=== PATIENT | female | born 1930 | race Caucasian/White ===

== ENCOUNTER 2017-06-06 12:04 | Inpatient (IN) | payer MEDICARE ==
[2017-06-06] VITALS (21 sets, daily range): BP systolic 89–131; BP diastolic 44–95; PULSE 51–132; RESP 17–28; O2SAT 93–100
[~2017-06-06] VITALS: Ht 167.6 cm; Wt 73.6 kg
--- NOTE | 2017-06-06 12:26 | ED.REPORT ---
HPI-Chest Pain 40 and Over Date of Service Jun 06, 2017 ED Provider: Dr. Arthur Demarco Pt is a 86 year old female with a history of kidney disease, hypertension, and A -fib wih RVR on warfarin who presents to the ED complaining of an irregular HB that woke her at 0430 2 days ago. She measured her HR at home to be between 130- 180 bpm since onset. Pt has no other complaints at this time. Pt. denies SOB, chest pain, lower extremity swelling or any other symptoms at this time. 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 Pt has been taking Atenolol every 12 hours since onset with her last dose a midnight this morning, she reports she takes this intermittently for a-fib. She does not take Cardizem but did take one Digoxin at onset. She takes Losartan daily Pt had similar symptoms a year ago which required electrocardioversion Nursing Notes Stated Complaint: A-FIB Chief Complaint: Dysrhythmia/Cardiac Nursing Notes Reviewed: Yes Allergies: Coded Allergies: Sulfa (Sulfonamide Antibiotics) (Verified Allergy, Mild, GI ISSUES, ) morphine (Verified Allergy, Unknown, nausea, 06/06/17) General Time Seen by MD: 12:26 Chief Complaint Other (Dysrhythmia ) Hx Obtained From: Patient Arrived By: Walk-in Sudden in Onset?: Yes Onset Occurred: 2 days ago Symptom Duration: Since onset Recent Healthcare: No recent doctor visit, No recent hospitalization Similar Sx Previous: Yes Risk Factors )( CAD Risk Stratification HypertensionNo Diabetes mellitus, No Hyperlipidemia, No Known CAD, No Smoking )( TAD Risk Stratification HypertensionNo Risk factors reviewed )( PE Risk Stratification No , No Risk factors reviewed Past Medical History Past Medical History A-Fib with RVR Hypertension Kidney disease Past Surgical History Orthopedic surgery Right breast Right shoulder Reports: Cataract surgery Smoking History Former Smoker Social History Alcohol Use: Denies alcohol use Drug Use: Denies drug use Ambulatory Status Independent Review of Systems Respiratory: Denies: Shortness of breath Cardiovascular: Denies: Chest pain Musculoskeletal: Denies: Extremity swelling (Lower) Complete sys rev & neg: except as marked. Physical Exam Initial Vital Signs Vital Signs (First) Date Time Temp Pulse Resp B/P Pulse Ox O2 Delivery O2 Flow Rate FiO2 06/06/17 12:11 36.2 131 18 116/73 97 Room Air 06/06/17 14:48 2 Initial VS: Reviewed General/Constitutional: Awake, Alert Appearance / Presentation: Positive: Pale Respiratory / Chest: Atraumatic, Breath sounds NL, Breath sounds = bilat Heart Rate / Rhythm: Positive: Irreg irregular rhythm, Tachycardia Abdomen: Atraumatic, Soft, Non-tender Neck: Atraumatic, Supple, No JVD Back: Atraumatic, Inspection NL, Full range of motion Lower Extremity / Pelvis / MS: No edema Skin: Warm, Dry Pale Neurologic: Oriented X3, Speech NL, No motor deficits, No sensory deficits Head / Eyes: Atraumatic, Normocephalic, PERRL, EOMI ENT: Atraumatic, Airway patent, Mucous membranes moist Interpretation & Diagnostics Lab Results Interpretation Result Diagram: 06/06/17 1243 06/06/17 1243 Test 06/06/17 12:43 White Blood Count 10.6th/mm3 (3.8-10.1) Red Blood Count 3.26mil/mm3 (3.90-5.20) Hemoglobin 10.4g/dL (12.0-15.6) Hematocrit 32.6% (35.0-46.0) Mean Corpuscular Volume 100.0fL (81-100) Mean Corpuscular Hemoglobin 31.9pg (27.0-35.0) Mean Corpuscular Hemoglobin Concent 31.9% (32.0-37.0) Red Cell Distribution Width 14.5% (12.3-15.4) Platelet Count 336bil/L (150-400) Neutrophils (%) (Auto) 65.8% (40-74) Lymphocytes (%) (Auto) 20.5% (14-46) Monocytes (%) (Auto) 9.8% (4-12) Eosinophils (%) (Auto) 2.8% (0-5) Basophils (%) (Auto) 0.5% (0-3) Prothrombin Time 40.4sec (8.1-12.5) Prothromb Time International Ratio 3.68ratio Sodium Level 136mEq/L (134-144) Potassium Level 4.5mEq/L (3.5-5.2) Chloride Level 99mEq/L (97-108) Carbon Dioxide Level 25mmol/L (18-29) Blood Urea Nitrogen 28mg/dL (8-27) Creatinine 1.54mg/dL (0.57-1.00) Estimat Glomerular Filtration Rate 46mL/min (>59) Glucose Level 88mg/dL (60-99) Calcium Level 9.1mg/dL (8.5-10.1) Magnesium Level 2.1mg/dL (1.6-2.6) Total Bilirubin 0.3mg/dL (0.0-1.2) Aspartate Amino Transf (AST/SGOT) 20U/L (0-50) Alanine Aminotransferase (ALT/SGPT) 17U/L (0-32) Alkaline Phosphatase 87U/L (25-165) Troponin T < 0.010ug/L (0.0-0.011) Total Protein 7.8g/dL (6.4-8.4) Albumin 4.2g/dL (3.4-5.0) ECG Interpretation ECG Interpretation: EKG post-cardioversion Sinus rate 57 Multiple pvc's Time: 14:56 Interpreted by: ED physician Procedures Electrical Cardioversion Electrical Cardioversion: Sinus with some PVC's with a rate of 70-80 s/p procedure. Time: 14:48 Procedure Performed by: ED physician Indication: Atrial fibrillation Consent / Setup / Site Prep: Informed consent provided, Consent from patient , Time-out performed, Placed on oxygen, Placed on pulse oximeter, Place on chili powder mixer, Hand hygiene observed Procedural Sedation/Analgesia: Sedation: Propofol (30 mg ) Joules: 50 Post-Procedure / Complications: No complications, Condition improved, Tolerated procedure well, Patient stable Proced Mod Sedation/Analgesia Physician left room at 1453. Respiratory therapy still in attendance. Time: 14:47 Procedure Performed by: ED physician Consent / Setup: Informed consent provided, Consent from patient, Time-out performed, Hand hygiene observed, Position supine Indication: Other (cardioversion) Preparation: ruling technician applied, Pulse oximeter applied, Constant attendance, IV access established, Eval last meal time, Supplemental oxygen, Procedure explained VS Prior to Procedure: O2 saturation normal, Blood pressure normal, Respiratory rate normal Airway Exam: Normal facial anatomy CVS/Resp Exam: Normal breath sounds Sedation: Sedation: Propofol Response During Procedure: Handled secretions adeq, Maintained airway well, Oxygenation stable, Sedation appropriate Complications During/After: None Reversal: None required Mental Status After Procedure: Alert, Oriented X3, Normal per age, At patient' s baseline Attestation: I performed procedure, I performed sedation Re-Eval/Medical Decision Med Decision/Clinical Course 86-year-old female with recurrent paroxysmal A. fib. Anticoagulated on Coumadin. Patient refuses beta blockers and calcium channel blockers due to medication side effects. Her discussion regarding risks benefits and alternatives to management of stable atrial fibrillation, patient agrees to proceed with attempted chemical cardioversion with amiodarone and if this fails, synchronized cardioversion. Her INR is therapeutic. She underwent synchronized cardioversion with 30 mg of propofol and 50 J of energy. Patient was asymptomatic for this however she did have transient hypotension which responded to IV fluids. She did have some ectopy after having cardioversion. She was asymptomatic of this in terms of chest pain or shortness of breath. After a 500 mL bolus of IV fluid, a period of observation, and multiple discussions with the patient, the patient is able to ambulate with a steady gait. She is asymptomatic. Etiology is briefly consulted and reviewed the case and EKGs agrees to see the patient in clinic if she feels safe to go home and agrees to see the patient in the hospital if she agrees to be admitted. Ultimately given that the patient is feeling better and is asymptomatic after extensive shared decision making regarding her disease process, the patient wishes to go home. Given that she is asymptomatic after cardioversion this seems reasonable. She will be discharged. It is recommended that she hold her warfarin due to elevated INR. It is recommended that she take her atenolol daily. She is given a contact info for cardiology and will see them in clinic. Return and follow-up precautions given. Source of Hx: Old records Time of Eval: 15:30 Re-Evaluation/Progress Note: Rechecked pt who would like to go home. Time of Eval: 16:35 Patient Status: Condition improved Re-Evaluation/Progress Note: Patient continues to have some ectopy on telemetry strip. States that she is asymptomatic. Attempted road test. She was able to get out of bed and ambulate around the room independently with no assistance. Patient had no symptoms of chest pain, shortness of breath, dizziness, vertigo, or ataxia during this. She is offered admission multiple times for observation given the ectopy and the transient low blood pressure. She repeatedly declines. Shared decision making is had. Patient understands my concerns given her supratherapeutic INR and earlier dizziness. She is insistent on going home. She agrees to return to the ER if worse. She will be given the cardiology contact info. Consultation : Referral / Consult Name: Shavonne Perez MD Consulted With: Cardiology Call Returned at: 15:15 Note: Discussed pt's case. reviewed rhythm, Suggests try atenolol 1630-came to the ER reviewed EKGs agrees that the patient is in a sinus rhythm with occasional PVCs without obvious ischemic changes. Discussed a plan of care. Agrees to see the patient either in the hospital or as an outpatient as decided by the patient. Counseled Regarding: Diagnosis, Lab results, Need for follow-up, When/why to return to ED Discharge & Departure Discharge Condition All VS Reviewed: Yes Condition: Stable Additional Instructions: While in the ER today you were treated for atrial fibrillation with a synchronized cardioversion (electric shock). Her heart is now in normal rhythm. Hold your warfarin today until your (coumadin) INR check tomorrow. Follow up with your product safety expert or primary care doctor in the next 2 days. Return to the ER if you develop persistent palpitations, persistent dizziness, chest pain, or other concerns. Referrals: OTHER,PHYSICIAN (PCP) Shavonne Perez MD Scribe Attestation Portions of this note were transcribed by Esperanza Harris and Jerardo James. I, Dr. Arthur Demarco personally performed the history, physical exam and medical decision-making; I reviewed and confirmed the accuracy of the information in the transcribed note. copies to: [facility] Santana Esparza DO Jun 06, 2017 12:26 Esperanza Harris Jun 06, 2017 12:53 JERARDO JAMES Jun 06, 2017 14:52
[2017-06-06] MEDS ORDERED: Amiodarone 150 mg/100 mL D5W 150 MG in IV Premix 1 EACH IV ONE (12:45)
[2017-06-06 12:49] LABS: BASOPHILS % (AUTO) 0.5 % (0-3); EOSINOPHILS % (AUTO) 2.8 % (0-5); MONOCYTES % (AUTO) 9.8 % (4-12); Mean Corpuscular Hemoglobin 31.9 pg (27.0-35.0); NEUTROPHILS % (AUTO) 65.8 % (40-74); Platelet Count 336 bil/L (150-400)
[2017-06-06 13:03] LABS: INR 3.68 ratio
[2017-06-06 13:15] LABS: TROPONIN T < 0.010 ug/L (0.0-0.011)
[2017-06-06 13:25] LABS: Magnesium 2.1 mg/dL (1.6-2.6)
[2017-06-06] MEDS ORDERED: Propofol 10 mg/mL 20 mL Inj IVPUSH ONE (14:30)
[2017-06-06] MEDS ORDERED: 0.9% Sodium Chloride 500 ML IV ONE (15:20)
[2017-06-06] MEDS: 0.9% Sodium Chloride 1,000 ML IV SCH (17:20)
[2017-06-06] MEDS ORDERED: Ondansetron 2 mg/mL 2 mL Inj IVPUSH PRN ×2 (18:25→19:10)
[2017-06-06] MEDS ORDERED: Alum-Mag Hydrox-Simeth 30 mL Suspension PO PRN (18:25)
[2017-06-06] MEDS ORDERED: Polyethylene Glycol (PEG) 17 Gm Powder PO PRN (19:10)
[2017-06-06] MEDS ORDERED: WARF2.5T82 PO ×2 (21:12)
[2017-06-06] MEDS ORDERED: LOSA100T29 PO (21:12)
--- NOTE | 2017-06-06 22:47 | PCM.HPMED ---
Subjective Date of Service Jun 06, 2017 Primary Provider: Admitting Physician: Nohemi Collins MD Primary Care Physician: Nopmelly Attending Physician: Nohemi Collins MD Chief Complaint: Irregular Heart rate History of Present Illness: Ms. Joelle Velasquez is a very pleasant 86 year old lady with a past medical history significant for kidney disease, hypertension, A-fib with RvR on warfarin who presents to the [facility] Emergency Department for 30+ hours of unrelenting A-fib. She reports having many episodes of this in the past that would resolve on its own or one other time she underwent elec cardioversion ~ 1 year ago. She states she had an ablation back in Nov 2016. She was given atenolol, diltiazem, flecainide and digoxin that she took for 4 weeks or so, but was not sure of time frame and she said she did not tolerate the flecainide and will not take the CCB. She reports Sunday morning she awoke to an "a-fib attack" with HR between 130-180 bpm, so she took 25mg Atenolol. The next day she remained in a-fib, so she took 25mg Atenolol BID and one dose of her home Digoxin 125 mcg. By Sun she was very nervous and called the EMS. Pt has no other complaints at this time. Pt. denies SOB, chest pain, lower extremity swelling or any other symptoms at this time. Social:Patient lives alone at [address] with her dog "ferny" in a town-home. She has stairs but lives in the lower level and doesn' t go up stairs. She has good social support and does not require an ambulatory aid. FULL CODE. 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 Pt has been taking Atenolol every 12 hours since onset with her last dose a midnight this morning, she reports she takes this intermittently for a-fib. She takes Losartan daily In the ED patients vitals: T36.2, HR 131, RR-18, BP-116/73, 97% RA. Patient underwent Electro-Cardioversion in the ED. Patient was to be discharged home, however, following cardioversion she had a near syncopal episode while ambulating down the koo. She is admitted under observation status. On Tele monitor. Patient has refused blood draws and CXR's. Review of Systems: A comprehensive review of systems was conducted with the patient and found to be negative except as above in the History of Present Illness. Allergies Coded Allergies: Sulfa (Sulfonamide Antibiotics) (Verified Allergy, Mild, GI ISSUES, ) morphine (Verified Allergy, Unknown, nausea, 06/06/17) Home Medications Warfarin 2.5 mg daily Losartan 100 mg daily Zolpidem 10 mg daily Previous Medications. Xarelto 15 mg daily Digoxin 125 mcg daily Flecainide 50 mg daily Diltiazem 120 mg daily Atenolol 25 mg daily PMH A-Fib with RVR Hypertension Kidney disease Surgical History Orthopedic surgery Right breast Right shoulder Reports: Cataract surgery Family History Mother - old age Father - Cancer Social History Hx Alcohol Use: Yes (occ) Hx Substance Use: No Smoking Status: Former Smoker Exam Vital Signs Vital Sign - Last Date Time Temp Pulse Resp B/P Pulse Ox O2 Delivery O2 Flow Rate FiO2 06/06/17 19:25 36.9 51 20 118/64 93 Room Air 06/06/17 14:48 2 Exam General: Elderly lady lying in bed in no acute distress, well-developed, well- nourished, appropriately interactive HEENT: Normocephalic, atraumatic. External ears without defect. Pupils equal, round, and reactive to light and accommodation. Anicteric sclerae, moist conjunctivae, and no lid lag. Oropharynx free of erythema and cobble stoning with moist mucosa. Neck: Supple with full range of motion. No jugular venous distension. No bruits. No lymphadenopathy or thyromegaly. Cardiovascular: Irregularly irregular rate and rhythm with no murmurs, rubs, or gallops appreciated Pulmonary: Clear to auscultation bilaterally with no crackles, wheezes, or rhonchi. Normal respiratory effort with no use of accessory muscles. Abdomen: Bowel tones present. Soft, nontender, nondistended. No hepatosplenomegaly or masses appreciated. Extremities: No clubbing, cyanosis, edema, or lymphadenopathy appreciated. Skin: Normal temperature, turgor, and texture; no rash, ulcers, or subcutaneous nodules appreciated. Neurological: Cranial nerves grossly intact. Normal muscle strength, tone, and bulk. Reflexes, coordination, and sensory function within normal limits. No known gait impairment. Psychiatric: Normal mood and affect. Alert and oriented to person, place, and time. Lab and Diagnostics Result Diagram: 06/06/17 1243 06/06/17 1243 Assessment & Plan Ms. Joelle Velasquez is a very pleasant 86 year old lady with a past medical history significant for kidney disease, hypertension, A-fib with RvR on warfarin who presents to the [facility] Emergency Department for 30+ hours of unrelenting A-fib. She was cardioverted in the ED and had a near-syncopal episode. She was admitted under observation status. Cardiology consulted for the AM. Acute on Chronic Persistent Paroxysmal Atrial Fibrillation with RvR requiring electro cardioversion in the ED, present on admission. Resolved. - Continue home Warfarin. INR 3.68. - Amiodarone 150 mg IV given in the ED. - Troponins neg x2. - On Tele. - Patient received 25 mg Atenolol. - Amiodarone PO maintenance 200 mg PO BID. - Cardiology consulted. - ECHO ordered. Near syncope, present in the ED. Resolved. - Monitor BP, orthostatics ordered. - Continue IV NS @75/hr for 1 L. Super-therapeutic INR. present on admission. Active. - INR 3.68. - Holding Warfarin. Chronic conditions. Chronic Kidney Disease - Cre 1.54, unknown baseline. 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 Hypertension. - Holding losartan 100 mg till appropriate, patient currently normotensive. Chronic Anemia - Hgb 10.4 on admission, currently 9.3. - Will follow H&H. Acetaminophen for mild pain when necessary. Bowel regimen Senna and MiraLAX scheduled and PRN. Zofran when necessary for nausea and vomiting. SubQ heparin held for now. SCDs in place. High-risk medications: Warfarin on hold. Social:Patient lives alone at [address] with her dog "ferny" in a town-home. She has stairs but lives in the lower level and doesn' t go up stairs. She has good social support and does not require an ambulatory aid. FULL CODE. Patient Status: Patient is admitted under observation status with expected length of stay less than 2 midnights due to severity of presenting symptoms, risk of adverse event, and complexity of treatment plan. Pain Evaluation: Adequate Pain Control Resuscitation Status: CPR: Attempt Resuscitation Attending Statement Patient has been seen and examined by myself with medical facilities section director and agree with above history, physical, assessment and plan. BAYLEE CONCEPCION DO Jun 06, 2017 19:58 Nohemi Collins MD Jun 07, 2017 06:11
[2017-06-07] VITALS (9 sets, daily range): BP systolic 107–137; BP diastolic 60–71; PULSE 55–100; RESP 16–18; O2SAT 95–100
[2017-06-07] MEDS: 0.9% Sodium Chloride 1,000 ML IV SCH (08:53)
--- NOTE | 2017-06-07 12:16 | DRSVH ---
[facility] [address] [place] [address] Echocardiogram Report Name: JANES JONES Date: 05/22 Height: 66 in Hospital Exam Location: [facility] Weight: 156 lb Gender: Female BSA: 1.8 m2 : 1930 Age: 86 yrs BP: 107/60 mmHg Reason For Study: Atrial fibrillation RVR Ordering Physician: Bg OlivierPerformed By: Justin Banerjee Referring Physician: BAYLEE CONCEPCION Interpretation Summary The left ventricle is normal in size. The ejection fraction is estimated to be 55-60%. Assessment of diastolic parameters indicates a restrictive filling pattern of the left ventricle consistent with significantly elevated filling pressures. The right ventricle is mild to moderately dilated. Right ventricular systolic function is at the lower limits of normal. There is moderate mitral regurgitation. There is moderate to severe tricuspid regurgitation. The right ventricular systolic pressure is estimated at 52 mmHg assuming a right atrial pressure of 15 mm Hg. There is moderate pulmonary hypertension. Procedure: A two-dimensional transthoracic echocardiogram with color flow and Doppler was performed. The study quality was technically adequate. There is no prior echocardiogram noted for this patient. The heart rate ranged between 54-68 bpm during the study. The patient was in normal sinus rhythm during the exam. The patient had frequent PACs during the exam. Left Ventricle: The left ventricle is normal in size. Left ventricular wall thickness is at the upper limits of normal. Proximal septal thickening is noted. There is no echo evidence for significant left ventricular outflow tract obstruction. There is no thrombus. The ejection fraction is estimated to be 55-60%. Septal motion is consistent with conduction abnormality. Assessment of diastolic parameters indicates a restrictive filling pattern of the left ventricle consistent with significantly elevated filling pressures. Right Ventricle: The right ventricle is mild to moderately dilated. A calcified moderator band is seen in the right ventricle. Right ventricular systolic function is at the lower limits of normal. Atria: Both atria are severely dilated. The interatrial septum is intact with no evidence for an atrial septal defect. Mitral Valve: The mitral valve leaflets are mildly calcified. There is moderate to severe mitral annular calcification. No significant mitral valve stenosis. There is moderate mitral regurgitation. Aortic Valve: The aortic valve is mildly calcified. The aortic valve is trileaflet. There is no aortic valve stenosis. No aortic regurgitation is present. Tricuspid Valve: The tricuspid valve leaflets are thickened and/or calcified, but open well. The tricuspid annulus is dilated. There is moderate to severe tricuspid regurgitation. The right ventricular systolic pressure is estimated at 52 mmHg assuming a right atrial pressure of 15 mm Hg. There is moderate pulmonary hypertension. Pulmonic Valve: The pulmonic valve is not well visualized. Great Vessels: The aortic root is normal size. The ascending aorta is mildly enlarged. The pulmonary is not well visualized. The IVC is dilated (diameter is greater than 2.1 cm) and it collapses less than 50% with a sniff. This suggests a high right atrial pressure of 15 mm Hg. Pericardium/ Pleura There is no pericardial effusion. There is no pleural effusion. MMode/2D Measurements & Calculations LVIDd: 4.8 cm RA long axis LVOT diam LVIDs: 3.4 cm LA A2 area: 20.8 cm FS: 29.7 % LA A4 area: 25.8 cm RA area AoV Opening EPSS: 0.91 cm LA length (vol): 6.2 cm IVSd: 1.00 cm LA vol: 73.5 ml : 21.0 cm Ao root diam LVPWd: 0.91 cm LA vol index RA vol : 74.7 ml asc Aorta RA Diam: 3.4 cm IVC diam: 2.6 cm : 41.5 mm2 LV escobedo. diameter/BSA LV sys. diameter/BSA TAPSE: 1.9 cm (cm/m^2): 2.7 (cm/m^2): 1.9 Doppler Measurements & Calculations Ao V2 max: 125.1 cm/secMV E max sushant MV E/A: 2.6 TR max sushant Ao max P.3 mmHg : 119.2 cm/sec Med Peak E' Sushant : 305.7 cm/sec Ao mean P.0 mmHg MV A max sushant TR max PG LVOT Max Sushant : 46.0 cm/sec E/E' med: 24.3 : 37.4 mmHg : 69.5 cm/sec Lat Peak E' Sushant PA V2 max CHAPITO(I,D): 1.5 cm : 84.6 cm/sec sev ratio: 0.54 E/E' lat: 18.9 PA mean PG E/e' average : 1.5 mmHg MV dec time: 0.17 sec Ao V2 mean LV V1 max PG PA V2 mean : 98.1 cm/sec : 59.0 cm/sec Ao V2 VTI: 27.5 cmLV V1 VTI PA pr(Accel) CHAPITO(V,D): 1.5 cm2 : 14.9 cm : 39.1 mmHg CHAPITO indexed to BSA (cm^2/m^2): 0.81 Reading Physician:PM
--- NOTE | 2017-06-07 13:18 | PCM.PNMED ---
Subjective Date of Service Jun 07, 2017 Subjective Pt has been in sinus since cardioversion. Says no syncope this AM w/ standing. Denies CP/Palpitations. Exam Vital Signs Vital Sign - Last Date Time Temp Pulse Resp B/P Pulse Ox O2 Delivery O2 Flow Rate FiO2 06/07/17 10:57 60 06/07/17 08:15 16 137/71 100 Room Air 06/07/17 03:26 36.7 06/06/17 14:48 2 Intake and Output 06/06/17 06/06/17 06/07/17 Cumulative From/Thru 15:00 23:00 07:00 06/06/17 12:11 - 06/07/17 05:16 Intake Total 882 ml 882 ml Output Total 500 ml 500 ml Balance 382 ml 382 ml Intake Oral 400 ml 400 ml IV Total 482 ml 482 ml Output Urine Total 300 ml 300 ml Urine/Stool Mix 200 ml 200 ml # Bowel Movements 1 1 Exam General: Elderly lady lying in bed in no acute distress, well-developed, well- nourished, appropriately interactive HEENT: Normocephalic, atraumatic. External ears without defect. Pupils equal, round, and reactive to light and accommodation. Anicteric sclerae, moist conjunctivae, and no lid lag. Oropharynx free of erythema and cobble stoning with moist mucosa. Neck: Supple with full range of motion. No jugular venous distension. No bruits. No lymphadenopathy or thyromegaly. Cardiovascular: Irregularly irregular rate and rhythm with no murmurs, rubs, or gallops appreciated Pulmonary: Clear to auscultation bilaterally with no crackles, wheezes, or rhonchi. Normal respiratory effort with no use of accessory muscles. Abdomen: Bowel tones present. Soft, nontender, nondistended. No hepatosplenomegaly or masses appreciated. Extremities: No clubbing, cyanosis, edema, or lymphadenopathy appreciated. Skin: Normal temperature, turgor, and texture; no rash, ulcers, or subcutaneous nodules appreciated. Neurological: Cranial nerves grossly intact. Normal muscle strength, tone, and bulk. Reflexes, coordination, and sensory function within normal limits. No known gait impairment. Psychiatric: Normal mood and affect. Alert and oriented to person, place, and time. IVs and Medications Medications Reviewed: Medications were reviewed in detail Lab and Diagnostics Result Diagram: 06/06/17211117 1243 12-lead ECG 06/07/17- Echo The left ventricle is normal in size. The ejection fraction is estimated to be 55-60%. Assessment of diastolic parameters indicates a restrictive filling pattern of the left ventricle consistent with significantly elevated filling pressures. The right ventricle is mild to moderately dilated. Right ventricular systolic function is at the lower limits of normal. There is moderate mitral regurgitation. There is moderate to severe tricuspid regurgitation. The right ventricular systolic pressure is estimated at 52 mmHg assuming a right atrial pressure of 15 mm Hg. There is moderate pulmonary hypertension Assessment & Plan Ms. Joelle Velasquez is a very pleasant 86 year old lady with a past medical history significant for kidney disease, hypertension, A-fib with RvR on warfarin who presents to the [facility] Emergency Department for 30+ hours of unrelenting A-fib. She was cardioverted in the ED and had a near-syncopal episode. She was admitted under observation status. Acute on Chronic Persistent Paroxysmal Atrial Fibrillation with RvR requiring electro cardioversion in the ED, present on admission. Resolved. - Continue home Warfarin. INR 3.68. Patient received 25 mg Atenolol which is home med, but pt takes infrequently. -Amiodarone 150 mg IV given in the ED. Amiodarone PO maintenance 200 mg PO BID , stopped 06/07. - Troponins neg x2. - 06/07- Echo- EF 55-60%, LV Diastolic dysfunction indicated restrictive filling pattern. RV mild to moderately dilated. Mod MR, Mod-Severe TR, moderate pulmonary hypertension - Cardiology consulted. Dr Perez, initial recs d/c amiodarone as can prolong INR , can rate control with Atenolol. Will see in afternoon. - Recheck INR in AM, can hold until INR is in therapeutic window 2-3. Near syncope, present in the ED. Resolved. - Monitor BP. resume home as tolerated- Losartan, Atenolol. - Continue IV NS @75/hr for 1 L. Super-therapeutic INR. present on admission. Active. - INR 3.68. - Holding Warfarin. - Recheck INR in AM, can hold until INR is in therapeutic window 2-3. Chronic conditions. Chronic Kidney Disease - Cre 1.54, baseline 1.4 per records. - [employer] at [employer] Hypertension, stable. - Resumed losartan 100 mg, pt took half dose on 06/07. . Chronic Anemia, stable. - Hgb 10.4 on admission, currently 9.3. - Will follow H&H. Acetaminophen for mild pain when necessary. Bowel regimen Senna and MiraLAX scheduled and PRN. Zofran when necessary for nausea and vomiting. SubQ heparin held for now. SCDs in place. High-risk medications: Warfarin on hold. Social:Patient lives alone at [place] [facility] with her dog "ferny" in a town-home. She has stairs but lives in the lower level and doesn' t go up stairs. She has good social support and does not require an ambulatory aid. Patient Status: Patient changed from obs to inpatient status with expected length of stay greater than 2 midnights due to severity of presenting symptoms, risk of adverse event, and complexity of treatment plan. VTE Mechanical Devices: Intermittant Pneumatic CD Resuscitation Status: CPR: Attempt Resuscitation Perry Crawford MD Jun 07, 2017 13:18
--- NOTE | 2017-06-07 16:41 | CONS ---
[address] [address] CONSULTATION REPORT PATIENT: JANES JONES : 1930 MR#: [id number] ADMIT: 06/06/2017 JOB ID: [id number] DATE OF SERVICE: 06/07/2017 CARDIOLOGY CONSULTATION: CHIEF COMPLAINT: I was asked by the hospitalist team to consult on this patient given recent atrial fibrillation status post cardioversion with significant ectopy post cardioversion. HISTORY OF PRESENT ILLNESS: The patient is an 86-year-old woman who has a past medical history significant for hypertension, atrial fibrillation, for which she had an ablation procedure performed this year at [facility] in [place]. Unfortunately she has had recurrence of the atrial fibrillation. She is on anticoagulation and was told to take atenolol whenever she feels that her heart rates are going up as she might be in atrial fibrillation. Apparently this has worked thus far. Yesterday she came into the ED, however, with persistence of atrial fibrillation with high ventricular rates. She was therapeutic on anticoagulation, and because of this, she was given a bolus of amiodarone and cardioverted. This successfully converted her to sinus rhythm. However, she had significant ectopy including frequent PACs and some PVCs. She was given sedation for the cardioversion and was still somewhat dizzy and lightheaded with relatively low blood pressure after cardioversion. Therefore, plans were made for admission. Since she has been admitted, she has actually been doing quite well. She was started on amiodarone at admission, however, we have now discontinued this. She is currently on losartan and atenolol as well as warfarin although warfarin has been held because of a somewhat elevated INR. She says prior to this, she has been doing fairly well. She denies any problems with chest pain, shortness of breath, orthopnea, lower extremity edema, presyncope or syncope. She does have chronic renal insufficiency and is followed by a doctor at [facility]. She also has a primary care provider who she just recently started with in the [facility] and she is very pleased with him. PAST MEDICAL HISTORY/PROBLEM LIST: 1. History of paroxysmal atrial fibrillation. 2. Hypertension. HOME MEDICATIONS: Include: 1. Warfarin 2.5 daily. 2. Losartan 100 mg daily. 3. Atenolol as needed. ALLERGIES: SULFA and MORPHINE. She has also tried multiple other medications which she has not been able to continue including Xarelto, digoxin, flecainide, diltiazem. I think she told me that she has been on Coreg and I am not sure if she has been on metoprolol. SOCIAL HISTORY: Occasional alcohol use. No tobacco use. Former smoker. FAMILY HISTORY: No early coronary artery disease. REVIEW OF SYSTEMS: Overall health: No effusions, night sweats, or weight loss. GI: No problems with ulcers, blood in the stool. : No dysuria, hematuria. Pulmonary: No lung disease. No significant shortness of breath. Cardiac: As per HPI. Endocrine: No heat or cold intolerance. Heme: No easy bruising or bleeding. Neuro: No chronic headaches. Skin: No breakdown appreciated. Psych: No acute issues. ENT: No difficulty with hearing or swallowing or paradoxical vision issues. PHYSICAL EXAMINATION: Blood pressure 124/64, heart rate 59, sats are 96% on room air. General: In no acute distress. Speaking in full sentences without apparent shortness of breath. Head and neck examination: Normocephalic, atraumatic. Neck: No masses appreciated. Heart examination: Regular rate and rhythm. I do not appreciate murmurs, gallops, rubs. Lungs sound clear to auscultation. Back: No CVA tenderness to palpation. Abdomen: Soft, nontender. Vascular: 2+ distal pulses. No carotid bruits appreciated. Skin without breakdown appreciated. Neuro: Alert and oriented x3. Gait is not tested. Psych: Appropriate mood and affect. Ophtho: Vision grossly intact. ENT: Hearing grossly intact. Mucous membranes moist. CURRENT MEDICATIONS: As noted. LABORATORIES: Show an INR of 3.68. Chemistry from yesterday shows a sodium 136, potassium 4.5, chloride and bicarb 99 and 25 respectively. BUN and creatinine 28 and 1.54. Troponins all negative. Hematology shows a white count 10.7, H and H 10.4 and 32.6, fairly stable. Platelets of 336,000. An echocardiogram shows normal LV systolic function. Moderate mitral regurgitation. Elevated right-sided pressures and some degree of tricuspid regurgitation, at least moderate. IMPRESSION: The patient is doing well at this time. She is fairly intolerant of most medications which would help with AV stew blocking including calcium channel blockers and most beta blockers although she seemed to tolerate atenolol. She says she has tried Coreg before and did not tolerate this as well. I would not recommend digoxin. It seems that she has not tolerated that as well. PLAN/RECOMMENDATIONS: 1. I spoke with the hospitalist and I think the plan is to keep her for an additional day to see how she does and make sure her INR is safe. She did get amiodarone which may have affected the INR reading. 2. Originally we were thinking of a scheduled atenolol dosing. We need to just make sure what her renal clearance is as this is renally cleared to make sure this is a safe drug for her to take on a daily basis. Alternatively we could put her on metoprolol succinate short-term to see if this helps. I am not sure if she will continue this. 3. I did talk about the amiodarone, however, I told her that is a drug that has interactions with her Coumadin and also has the potential for side effects. It could maintain sinus rhythm, however, although there are other drugs we could consider. It appears that she did try flecainide in the past. 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 I will check with you tomorrow. I spent 45 minutes speaking with the patient reviewing all records, examining her, discussing plans for further management.
--- NOTE | 2017-06-07 16:51 | PCM.PHAPRO ---
Progress Date of Service: Jun 07, 2017 Irregular Heart rate Warfarin Management per Pharmacy: Indication: Stroke prophylaxis as patient has atrial fibrillation Goal INR: 2-3 Home Dose: 1.25 mg Tues/Th and 2.5 mg all other days Labs: Hgb/Hct: 9.3/29.1 Plt: 336 INR: 3.68 (drawn on 06/06), no new labs today Drug Interactions: Received amiodarone yesterday, d/c today Recommendation: Hold warfarin as believe INR is still high (although cannot verify as lab not drawn although ordered). INR ordered daily w/ AM labs Pharmacy to continue to monitor and adjust dose as needed. Thank You, Tali Roman, Pharm D. Tali Roman Jun 07, 2017 16:51
[2017-06-07] MEDS: Alum-Mag Hydrox-Simeth 30 mL Suspension PO PRN (20:51)
[2017-06-08 01:44] VITALS: BP 132/72; PULSE 50; RESP 18; O2SAT 96
[2017-06-08] MEDS: 0.9% Sodium Chloride 1,000 ML IV SCH ×2 (02:01→09:19)
[2017-06-08 02:09] LABS: APPEARANCE,URINE CLEAR (CLEAR,HAZY); COLOR,URINE YELLOW (YELLOW); OCCULT BLOOD,URINE NEGATIVE (NEGATIVE); PH,URINE 5.5 (5.0-8.0); UROBILINOGEN,URINE NORMAL (NORMAL)
[2017-06-08 05:14] VITALS: BP 125/67; PULSE 60; RESP 18; O2SAT 96
[2017-06-08 06:03] VITALS: PULSE 59
[2017-06-08 09:10] LABS: INR 1.95 ratio
[2017-06-08 10:33] VITALS: BP 122/59; PULSE 61; RESP 16; O2SAT 97
[2017-06-08] MEDS: Alum-Mag Hydrox-Simeth 30 mL Suspension PO PRN (10:35)
--- NOTE | 2017-06-08 10:53 | PCM.PNMED ---
Subjective Date of Service Jun 08, 2017 Subjective Pt has remained in sinus rythm overnight. No palpitations. No chest pain. Exam Vital Signs Vital Sign - Last Date Time Temp Pulse Resp B/P Pulse Ox O2 Delivery O2 Flow Rate FiO2 06/08/17 10:33 36.7 61 16 122/59 97 Room Air 06/06/17 14:48 2 Intake and Output 06/07/17 06/07/17 06/08/17 Cumulative From/Thru 15:00 23:00 07:00 06/06/17 12:11 - 06/08/17 00:46 Intake Total 436 ml 1318 ml Output Total 100 ml 600 ml Balance 336 ml 718 ml Intake Oral 436 ml 836 ml IV Total 482 ml Output Urine Total 100 ml 400 ml Urine/Stool Mix 200 ml # Voids 3 3 # Bowel Movements 1 Exam General: Elderly lady lying in bed in no acute distress, well-developed, well- nourished, appropriately interactive HEENT: Normocephalic, atraumatic. External ears without defect. Pupils equal, round, and reactive to light and accommodation. Anicteric sclerae, moist conjunctivae, and no lid lag. Oropharynx free of erythema and cobble stoning with moist mucosa. Neck: Supple with full range of motion. No jugular venous distension. No bruits. No lymphadenopathy or thyromegaly. Cardiovascular: Irregularly irregular rate and rhythm with no murmurs, rubs, or gallops appreciated Pulmonary: Clear to auscultation bilaterally with no crackles, wheezes, or rhonchi. Normal respiratory effort with no use of accessory muscles. Abdomen: Bowel tones present. Soft, nontender, nondistended. No hepatosplenomegaly or masses appreciated. Extremities: No clubbing, cyanosis, edema, or lymphadenopathy appreciated. Skin: Normal temperature, turgor, and texture; no rash, ulcers, or subcutaneous nodules appreciated. Neurological: Cranial nerves grossly intact. Normal muscle strength, tone, and bulk. Reflexes, coordination, and sensory function within normal limits. No known gait impairment. Psychiatric: Normal mood and affect. Alert and oriented to person, place, and time. IVs and Medications Medications Reviewed: Medications were reviewed in detail Lab and Diagnostics Result Diagram: 06/06/17 2112 06/06/17 1243 12-lead ECG 06/07/17- Echo The left ventricle is normal in size. The ejection fraction is estimated to be 55-60%. Assessment of diastolic parameters indicates a restrictive filling pattern of the left ventricle consistent with significantly elevated filling pressures. The right ventricle is mild to moderately dilated. Right ventricular systolic function is at the lower limits of normal. There is moderate mitral regurgitation. There is moderate to severe tricuspid regurgitation. The right ventricular systolic pressure is estimated at 52 mmHg assuming a right atrial pressure of 15 mm Hg. There is moderate pulmonary hypertension Assessment & Plan Ms. Joelle Mckeonlps is a very pleasant 86 year old lady with a past medical history significant for kidney disease, hypertension, A-fib with RvR on warfarin who presents to the [facility] Emergency Department for 30+ hours of unrelenting A-fib. She was cardioverted in the ED and has remained in sinus rhythm. Acute on Chronic Persistent Paroxysmal Atrial Fibrillation with RvR requiring electro cardioversion in the ED, present on admission. Resolved. - Continue home Warfarin. INR 3.68. Patient received 25 mg Atenolol which is home med, but pt takes infrequently. -Amiodarone 150 mg IV given in the ED. Amiodarone PO maintenance 200 mg PO BID , stopped 06/07. - Troponins neg x2. - 06/07- Echo- EF 55-60%, LV Diastolic dysfunction indicated restrictive filling pattern. RV mild to moderately dilated. Mod MR, Mod-Severe TR, moderate pulmonary hypertension - Cardiology consulted. Dr Perez, initial recs d/c amiodarone as can prolong INR , can rate control with Atenolol. - Repeat INR on 06/08 is 1.95 , goal therapeutic window 2-3. Can resume coumadin today. Near syncope, present in the ED. Resolved. - Monitor BP. - Resumed home medications- Losartan, Atenolol as needed. if HR greater than 100. Super-therapeutic INR. present on admission. Active. - INR 3.68. Likely inc also due to amiodarone dosing. - Holding Warfarin. - Repeat INR on 06/08 is 1.95 , goal therapeutic window 2-3. Can resume coumadin today. Chronic conditions. Chronic Kidney Disease, stable. - Cre 1.54, baseline 1.4 per records. 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 Hypertension, stable. - Resumed losartan 100 mg. Chronic Anemia, stable. - Hgb 10.4 on admission, currently 9.3. Acetaminophen for mild pain when necessary. Bowel regimen Senna and MiraLAX scheduled and PRN. Zofran when necessary for nausea and vomiting. Social:Patient lives alone at [place] [facility] with her dog "ferny" in a town-home. She has stairs but lives in the lower level and doesn' t go up stairs. She has good social support and does not require an ambulatory aid. Dispo- -Follow up with Cardiology Dr. Sue in 1 week, information provided on card. -Resumed home medications- Losartan, Atenolol as needed. if HR greater than 100. -Repeat INR on 06/08 is 1.95 , goal therapeutic window 2-3. Can resume Coumadin today. -Can resume normal INR testing lab schedule next week. VTE Mechanical Devices: Intermittant Pneumatic CD Resuscitation Status: CPR: Attempt Resuscitation Perry Crawford MD Jun 08, 2017 10:53
[2017-06-08] MEDS ORDERED: ATEN25TA PO (10:55)
--- NOTE | 2017-06-08 10:58 | PCM.DIMED ---
Discharge Instructions Date of Service Jun 08, 2017 Dates of Hospitalization Jun 06, 2017 at 18:53 Discharge Diagnosis Discharge Diagnosis Acute on Chronic Persistent Paroxysmal Atrial Fibrillation with RvR requiring electro cardioversion in the ED, present on admission. Resolved. Near syncope, present in the ED. Resolved. Super-therapeutic INR. present on admission. resolved. Chronic conditions. Chronic Kidney Disease, stable. Hypertension, stable. Chronic Anemia, stable. Medication Instructions Additional med instructions -Resumed home medications- Losartan, - Atenolol as needed. if HR greater than 100. Diet Discharge Diet: Heart Healthy Call your provider Call your provider for: Chest pain Patient Instructions Patient Instructions -Repeat INR on 06/08 is 1.95 , goal therapeutic window 2-3. Can resume Coumadin today. -Can resume normal INR testing lab schedule next week. Follow-up plan -Follow up with Cardiology Dr. Sue in 1 week, information provided on card. Perry Crawford MD Jun 08, 2017 10:58
--- NOTE | 2017-06-08 11:01 | PCM.DC.MED ---
Discharge Summary Date of Service Jun 08, 2017 Dates of Hospitalization Date of Hospital Admission Jun 06, 2017 at 18:53 Date of Discharge: Jun 08, 2017 Providers: Admitting Physician: Nohemi Collins MD Primary Care Physician: Kemal Attending Physician: Yasmine Gamez MD Diagnosis at Time of Discharge Diagnosis at Time of Discharge Acute on Chronic Persistent Paroxysmal Atrial Fibrillation with RvR requiring electro cardioversion in the ED, present on admission. Resolved. Near syncope, present in the ED. Resolved. Super-therapeutic INR. present on admission. resolved. Chronic conditions. Chronic Kidney Disease, stable. Hypertension, stable. Chronic Anemia, stable. Procedures ECG 12 Lead 06/07/17- Echo The left ventricle is normal in size. The ejection fraction is estimated to be 55-60%. Assessment of diastolic parameters indicates a restrictive filling pattern of the left ventricle consistent with significantly elevated filling pressures. The right ventricle is mild to moderately dilated. Right ventricular systolic function is at the lower limits of normal. There is moderate mitral regurgitation. There is moderate to severe tricuspid regurgitation. The right ventricular systolic pressure is estimated at 52 mmHg assuming a right atrial pressure of 15 mm Hg. There is moderate pulmonary hypertension Brief History Per HPI by Dr. Dixon on 06/06/17 Ms. Joelle Velasquez is a very pleasant 86 year old lady with a past medical history significant for kidney disease, hypertension, A-fib with RvR on warfarin who presents to the [facility] Emergency Department for 30+ hours of unrelenting A-fib. She reports having many episodes of this in the past that would resolve on its own or one other time she underwent elec cardioversion ~ 1 year ago. She states she had an ablation back in Nov 2016. She was given atenolol, diltiazem, flecainide and digoxin that she took for 4 weeks or so, but was not sure of time frame and she said she did not tolerate the flecainide and will not take the CCB. She reports Sunday morning she awoke to an "a-fib attack" with HR between 130-180 bpm, so she took 25mg Atenolol. The next day she remained in a-fib, so she took 25mg Atenolol BID and one dose of her home Digoxin 125 mcg. By Sun she was very nervous and called the EMS. Pt has no other complaints at this time. Pt. denies SOB, chest pain, lower extremity swelling or any other symptoms at this time. Social:Patient lives alone at [facility] with her dog "ferny" in a town-home. She has stairs but lives in the lower level and doesn' t go up stairs. She has good social support and does not require an ambulatory aid. FULL CODE. 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 Pt has been taking Atenolol every 12 hours since onset with her last dose a midnight this morning, she reports she takes this intermittently for a-fib. She takes Losartan daily In the ED patients vitals: T36.2, HR 131, RR-18, BP-116/73, 97% RA. Patient underwent Electro-Cardioversion in the ED. Patient was to be discharged home, however, following cardioversion she had a near syncopal episode while ambulating down the koo. She is admitted under observation status. On Tele monitor. Patient has refused blood draws and CXR's. Hospital Course Ms. Joelle Velasquez is a very pleasant 86 year old lady with a past medical history significant for kidney disease, hypertension, A-fib with RvR on warfarin who presents to the [facility] Emergency Department for 30+ hours of unrelenting A-fib. She was cardioverted in the ED and has remained in sinus rhythm. Acute on Chronic Persistent Paroxysmal Atrial Fibrillation with RvR requiring electro cardioversion in the ED, present on admission. Resolved. - Continue home Warfarin. INR 3.68. Patient received 25 mg Atenolol which is home med, but pt takes infrequently. -Amiodarone 150 mg IV given in the ED. Amiodarone PO maintenance 200 mg PO BID , stopped 06/07. - Troponins neg x2. - 06/07- Echo- EF 55-60%, LV Diastolic dysfunction indicated restrictive filling pattern. RV mild to moderately dilated. Mod MR, Mod-Severe TR, moderate pulmonary hypertension - Cardiology consulted. Dr Perez, initial recs d/c amiodarone as can prolong INR , can rate control with Atenolol. - Repeat INR on 06/08 is 1.95 , goal therapeutic window 2-3. Can resume coumadin today. Near syncope, present in the ED. Resolved. - Monitor BP. - Resumed home medications- Losartan, Atenolol as needed. if HR greater than 100. Super-therapeutic INR. present on admission. Active. - INR 3.68. Likely inc also due to amiodarone dosing. - Holding Warfarin. - Repeat INR on 06/08 is 1.95 , goal therapeutic window 2-3. Can resume coumadin today. Chronic conditions. Chronic Kidney Disease, stable. - Cre 1.54, baseline 1.4 per records. 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 Hypertension, stable. - Resumed losartan 100 mg. Chronic Anemia, stable. - Hgb 10.4 on admission, currently 9.3. Acetaminophen for mild pain when necessary. Bowel regimen Senna and MiraLAX scheduled and PRN. Zofran when necessary for nausea and vomiting. Social:Patient lives alone at [address] with her dog "ferny" in a town-home. She has stairs but lives in the lower level and doesn' t go up stairs. She has good social support and does not require an ambulatory aid. Dispo- -Follow up with Cardiology Dr. Sue in 1 week, information provided on card. -Resumed home medications- Losartan, Atenolol as needed. if HR greater than 100. -Repeat INR on 06/08 is 1.95 , goal therapeutic window 2-3. Can resume Coumadin today. -Can resume normal INR testing lab schedule next week. Exam Vital Signs (Last) Date Time Temp Pulse Resp B/P Pulse Ox O2 Delivery O2 Flow Rate FiO2 06/08/17 10:33 36.7 61 16 122/59 97 Room Air 06/06/17 14:48 2 Test 06/06/17 12:43 06/06/17 21:12 06/08/17 01:00 06/08/17 08:40 White Blood Count 10.6th/mm3 (3.8-10.1) Red Blood Count 3.26mil/mm3 (3.90-5.20) Mean Corpuscular Volume 100.0fL (81-100) Mean Corpuscular Hemoglobin 31.9pg (27.0-35.0) Mean Corpuscular Hemoglobin Concent 31.9% (32.0-37.0) Red Cell Distribution Width 14.5% (12.3-15.4) Platelet Count 336bil/L (150-400) Neutrophils (%) (Auto) 65.8% (40-74) Lymphocytes (%) (Auto) 20.5% (14-46) Monocytes (%) (Auto) 9.8% (4-12) Eosinophils (%) (Auto) 2.8% (0-5) Basophils (%) (Auto) 0.5% (0-3) Sodium Level 136mEq/L (134-144) Potassium Level 4.5mEq/L (3.5-5.2) Chloride Level 99mEq/L (97-108) Carbon Dioxide Level 25mmol/L (18-29) Blood Urea Nitrogen 28mg/dL (8-27) Creatinine 1.54mg/dL (0.57-1.00) Estimat Glomerular Filtration Rate 46mL/min (>59) Glucose Level 88mg/dL (60-99) Calcium Level 9.1mg/dL (8.5-10.1) Magnesium Level 2.1mg/dL (1.6-2.6) Total Bilirubin 0.3mg/dL (0.0-1.2) Aspartate Amino Transf (AST/SGOT) 20U/L (0-50) Alanine Aminotransferase (ALT/SGPT) 17U/L (0-32) Alkaline Phosphatase 87U/L (25-165) Total Protein 7.8g/dL (6.4-8.4) Albumin 4.2g/dL (3.4-5.0) Hemoglobin 9.3g/dL (12.0-15.6) Hematocrit 29.1% (35.0-46.0) Lactic Acid Level 1.2mmol/L (0.4-2.0) Troponin T < 0.010ug/L (0.0-0.011) Urine Color Yellow (YELLOW) Urine Appearance Clear (CLEAR,HAZY) Urine pH 5.5 (5.0-8.0) Urine Specific [place] 1.010 (1.003-1.035) Urine Protein Negativemg/dL (NEG,TRACE) Urine Glucose (UA) Negativemg/dL (NEGATIVE) Urine Ketones Negativemg/dL (NEGATIVE) Urine Occult Blood Negative (NEGATIVE) Urine Nitrite Negative (NEGATIVE) Urine Bilirubin Negative (NEGATIVE) Urine Urobilinogen Normalmg/dL (NORMAL) Urine Leukocyte Esterase Trace (NEGATIVE) Urine RBC 0-2/hpf (0-2) Urine WBC 6-10/hpf (0-5) Urine Epithelial Cells Occasional/hpf (NONE-MOD) Urine Crystals None seen (NONE SEEN) Urine Bacteria Few/hpf (NONE-FEW) Urine Hyaline Casts /20/lpf (NONE) Urine Granular Casts None seen (NONE SEEN) Urine Waxy Casts None seen (NONE SEEN) Urine Red Blood Cell Casts None seen (NONE SEEN) Urine White Blood Cell Casts None seen (NONE SEEN) Urine Mucus None seen (None Seen) Urine Trichomonas None seen (NONE SEEN) Urine Yeast None (NONE SEEN) Urinalysis Comment None Urine Culture Reflexed Indicated Prothrombin Time 21.2sec (8.1-12.5) Prothromb Time International Ratio 1.95ratio Discharge Medications Discharge Medications Losartan Potassium (Losartan Potassium) 100 Mg Tablet 100 MG PO DAILY (Reported ) Warfarin Sodium (Warfarin Sodium) 2.5 Mg Tablet 2.5 MG PO DAILY except TUE,MARCI ( Reported) Warfarin Sodium (Warfarin Sodium) 2.5 Mg Tablet 1.25 MG PO TUE,THUR (Reported) As needed Atenolol (Atenolol) 25 Mg Tablet 25 MG PO DAILY PRN PRN Tachycardia Prescribed by: YASMINE GAMEZ MD Additional med instructions -Resumed home medications- Losartan, - Atenolol as needed. if HR greater than 100. Followup Plan Disposition: Home, [facility]. Follow-up plan -Follow up with Cardiology Dr. Sue in 1 week, information provided on card. Discharge Diet: Heart Healthy Patient Instructions -Repeat INR on 06/08 is 1.95 , goal therapeutic window 2-3. Can resume Coumadin today. -Can resume normal INR testing lab schedule next week. Time spent Greater than 30 minutes was spent in preparation of discharge with greater than 50% of that time dedicated to patient counseling and coordination of care. Yasmine Gamez MD Jun 08, 2017 11:00
--- NOTE | 2017-06-08 11:12 | PCM.PHAPRO ---
Progress Date of Service: Jun 08, 2017 Warfarin dosing Date Jun 07-Jun 08-May INR 3.68 NNL 1.95 INR change #VALUE! #VALUE! Warf Dose UNK HOLD 2.5 MG Daly Win PharmD Jun 08, 2017 11:12
[2017-06-08 11:27] VITALS: PULSE 57
== END 2017-06-08 14:03 | disposition home or self-care (01) | DRG 309 ==
LOC: SED 12:04 → MPC 18:53
PROVIDERS: ADMIT Specialist; ATTEND Internal Medicine
PROC: 5A2204Z Restoration of Cardiac Rhythm, Single (ICD-10-PCS; principal; 2017-06-06)
DX: I49.3 Ventricular premature depolarization (principal); I97.89 Other postprocedural complications and disorders of the circulatory system, not elsewhere classified; I48.1 Persistent atrial fibrillation; R55 Syncope and collapse; I49.1 Atrial premature depolarization; Z79.01 Long term (current) use of anticoagulants; Z87.891 Personal history of nicotine dependence; I48.0 Paroxysmal atrial fibrillation; R79.1 Abnormal coagulation profile; N18.9 Chronic kidney disease, unspecified; I12.9 Hypertensive chronic kidney disease with stage 1 through stage 4 chronic kidney disease, or unspecified chronic kidney disease; D64.9 Anemia, unspecified; I36.8 Other nonrheumatic tricuspid valve disorders; I34.0 Nonrheumatic mitral (valve) insufficiency